=== PATIENT | female | born 1930 | race Caucasian/White ===

== ENCOUNTER → 2019-03-18 | Emergency (ER) | payer OTHER ==
[~2019-03-18] VITALS: Ht 157.5 cm; Wt 68.9 kg
[~2019-03-18] MED LIST: AVAPRO75 MG; AVAPRO75 MG PO; CATAPRES0.1 MG; GLUCOTROL5 MG/BOTTL PO; NORVASC5 MG; PRILOSEC20 MG PO; TIMOLOL MALEATE5 M1 OP; TRANSDERM-N0.2 MG/HR
== END | disposition home or self-care (01) ==
LOC: ER 08:14
DX: B33.8 Other specified viral diseases (principal)